=== PATIENT | female | born 1990 | race African-American/Black ===

== ENCOUNTER 2021-07-10 18:47 | Emergency (ER) | payer OTHER ==
[2021-07-11 17:21] LABS: SARS-CoV-2 PCR by NAA Not Detected (NotDetected)
== END 2021-07-10 19:23 | disposition home or self-care (01) ==
LOC: ERS 18:47
DX: R11.2 Nausea with vomiting, unspecified (principal); R19.7 Diarrhea, unspecified; Z20.822 Contact with and (suspected) exposure to COVID-19
CPT/HCPCS: 99283; U0003; U0005

== ENCOUNTER 2021-10-04 21:45 | Emergency (ER) | payer OTHER ==
[2021-10-04] MEDS ORDERED: Acetaminophen 500 MG TAB ONE ×2 (22:41)
[2021-10-05 13:15] LABS: SARS-CoV-2 PCR by NAA DETECTED (NotDetected)
== END 2021-10-04 23:13 | disposition home or self-care (01) ==
LOC: ERS 21:45
DX: U07.1 COVID-19 (principal)
CPT/HCPCS: 71045; 93005; U0003; U0005

== ENCOUNTER 2021-12-08 12:49 | Emergency (ER) | payer OTHER ==
[~2021-12-08 12:49] MED LIST: Iopamidol-370 76% 500 ML 1 ML ONE
[2021-12-08] MEDS ORDERED: Ketorolac Tromethamine 30 MG/ML VIAL ONE (13:35)
[2021-12-08] MEDS ORDERED: Morphine 4 MG/ML VIAL ONE (13:35)
[2021-12-08 16:01] LABS: #Basophils 0.1 thou/uL (0.0-0.2); #Eosinphils 0.3 thou/uL (0.0-0.7); #Lymphocytes 2.2 thou/uL (1.20-3.40); #Monocytes 0.5 thou/uL (0.11-0.59); #Neutrophils 6.2 thou/uL (1.40-6.50); %Basophils 0.8 % (0.0-1.0); %Eosinophils 2.9 % (0.0-10.0); %Lymphocytes 24.3 % (21.0-51.0); %Monocytes 5.3 % (0.0-10.0); %Neutrophils 66.7 % (42.0-75.0); Hemoglobin 12.5 g/dL (12.0-16.0); Mean Corpuscular HGB CONC 33.8 g/dL (32.0-36.0); Mean Corpuscular Hemoglobin 30.9 pg (27.0-31.0); Mean Corpuscular Volume 91.4 fL (78.0-98.0); Mean Platelet Volume 7.1 fL (7.4-10.4); Platelet Count 430 thou/uL (130-400); Red Blood Cell (RBC) Count 4.04 mill/uL (4.20-5.40); White Blood Cell (WBC) Count 9.2 thou/uL (4.8-10.8)
[2021-12-08 16:07] LABS: BHCG - Serum Negative (NEGATIVE); Pregs Control Background? CLEAR/WHITE (CLR/WHITE); Pregs Control Bar Appear? YES (CONTROL BAR)
[2021-12-08 16:13] LABS: ALT (SGPT) 16 U/L (8-55); AST (SGOT) 19 U/L (5-34); Albumin 4.1 g/dL (3.5-5.0); Alkaline Phosphatase 46 U/L (40-110); Anion Gap 13 mmol/L (10-20); BUN (Urea Nitrogen) 7 mg/dL (7.0-18.7); Bilirubin, Total 0.4 mg/dL (0.2-1.2); Calc. Creatinine Clearance 0 mL/min (70-130); Calcium 9.2 mg/dL (7.8-10.44); Carbon Dioxide 24 mmol/L (22-29); Chloride 106 mmol/L (98-107); Globulin 3.6 g/dL (2.4-3.5); Glucose 91 mg/dL (70-105); Potassium 3.6 mmol/L (3.5-5.1); Protein, Total 7.7 g/dL (6.0-8.3); Sodium 139 mmol/L (136-145)
== END 2021-12-08 17:36 | disposition home or self-care (01) ==
LOC: ERS 12:49
DX: R55 Syncope and collapse (principal); K76.0 Fatty (change of) liver, not elsewhere classified; N83.202 Unspecified ovarian cyst, left side
CPT/HCPCS: 71045; 74177; 80053; 84702; 84703; 85025; 86850; 86900; 86901; 93005; 96374; 96375; J1885; J2270; Q9967

== ENCOUNTER 2022-02-10 14:23 | Emergency (ER) | payer OTHER | END 2022-02-10 16:15 | disposition home or self-care (01) | LOC: ERS 14:23 | DX: J30.9 Allergic rhinitis, unspecified (principal) | CPT/HCPCS: 99283 ==

== ENCOUNTER 2022-04-25 18:58 | Emergency (ER) | payer BC, OTHER ==
[2022-04-25 19:33] LABS: #Basophils 0.1 thou/uL (0.0-0.2); #Eosinphils 0.3 thou/uL (0.0-0.7); #Monocytes 0.6 thou/uL (0.11-0.59); #Neutrophils 3.6 thou/uL (1.40-6.50); %Basophils 0.7 % (0.0-1.0); %Eosinophils 3.1 % (0.0-10.0); %Lymphocytes 46.7 % (21.0-51.0); %Monocytes 7.1 % (0.0-10.0); %Neutrophils 42.4 % (42.0-75.0); Hemoglobin 11.5 g/dL (12.0-16.0); Mean Corpuscular HGB CONC 32.2 g/dL (32.0-36.0); Mean Corpuscular Hemoglobin 30.6 pg (27.0-31.0); Mean Corpuscular Volume 94.9 fL (78.0-98.0); Mean Platelet Volume 7.5 fL (7.4-10.4); Platelet Count 373 thou/uL (130-400); RBC Distribution Width 12.4 % (11.5-14.5); Red Blood Cell (RBC) Count 3.75 mill/uL (4.20-5.40); White Blood Cell (WBC) Count 8.6 thou/uL (4.8-10.8)
[2022-04-25 19:40] LABS: BHCG - Serum Negative (NEGATIVE); Pregs Control Background? CLEAR/WHITE (CLR/WHITE); Pregs Control Bar Appear? YES (CONTROL BAR)
[2022-04-25 19:56] LABS: ALT (SGPT) 8 U/L (8-55); AST (SGOT) 15 U/L (5-34); Albumin 3.9 g/dL (3.5-5.0); Alkaline Phosphatase 45 U/L (40-110); Anion Gap 15 mmol/L (10-20); BUN (Urea Nitrogen) 6 mg/dL (7.0-18.7); Bilirubin, Total 0.3 mg/dL (0.2-1.2); Calc. Creatinine Clearance 0 mL/min (70-130); Carbon Dioxide 22 mmol/L (22-29); Chloride 106 mmol/L (98-107); Estimated GFR 111; Globulin 3.5 g/dL (2.4-3.5); Glucose 83 mg/dL (70-105); Lipase 32 U/L (8-78); Potassium 3.9 mmol/L (3.5-5.1); Protein, Total 7.4 g/dL (6.0-8.3); Sodium 139 mmol/L (136-145)
[2022-04-25 21:57] LABS: Bilirubin Negative (Negative); Blood, Urine Negative (Negative); Clarity Clear (Clear); Glucose, Urine (Dipstick) Normal (Negative); Ketone, Urine Negative (Negative); Leukocyte Negative Leu/uL (Negative); Nitrite Negative (Negative); Protein, Urine (Dipstick) Negative (Neg-Trace); Specific Gravity, Urine 1.013 (1.002-1.036); Urobilinogen Normal mg/dL (Less than 2); pH, Urine 6.5 (5.0-9.0)
[2022-04-25] MEDS ORDERED: Ondansetron PF 4 MG/2 ML Vial ONE (21:59)
[2022-04-25] MEDS ORDERED: Ketorolac Tromethamine 30 MG/ML VIAL ONE (21:59)
== END 2022-04-25 23:42 | disposition left against medical advice (07) ==
LOC: ERS 18:58
DX: R10.30 Lower abdominal pain, unspecified (principal)
CPT/HCPCS: 36415; 74177; 80053; 81003; 83690; 84703; 85025; 96374; 96375; J1885; J2405; Q9967

== ENCOUNTER 2022-04-26 08:42 | Emergency (ER) | payer BC ==
[2022-04-26 09:48] LABS: #Basophils 0.1 thou/uL (0.0-0.2); #Eosinphils 0.2 thou/uL (0.0-0.7); #Lymphocytes 2.5 thou/uL (1.20-3.40); #Monocytes 0.4 thou/uL (0.11-0.59); %Basophils 1.1 % (0.0-1.0); %Eosinophils 3.7 % (0.0-10.0); %Lymphocytes 40.5 % (21.0-51.0); %Monocytes 6.6 % (0.0-10.0); %Neutrophils 48.1 % (42.0-75.0); Hemoglobin 11.9 g/dL (12.0-16.0); Mean Corpuscular HGB CONC 32.8 g/dL (32.0-36.0); Mean Corpuscular Hemoglobin 30.3 pg (27.0-31.0); Mean Corpuscular Volume 92.4 fL (78.0-98.0); Mean Platelet Volume 7.4 fL (7.4-10.4); Platelet Count 374 thou/uL (130-400); RBC Distribution Width 12.3 % (11.5-14.5); Red Blood Cell (RBC) Count 3.92 mill/uL (4.20-5.40); White Blood Cell (WBC) Count 6.2 thou/uL (4.8-10.8)
[2022-04-26 09:59] LABS: BHCG - Serum Negative (NEGATIVE); Pregs Control Background? CLEAR/WHITE (CLR/WHITE); Pregs Control Bar Appear? YES (CONTROL BAR)
[2022-04-26 10:09] LABS: ALT (SGPT) 9 U/L (8-55); AST (SGOT) 17 U/L (5-34); Albumin 3.9 g/dL (3.5-5.0); Alkaline Phosphatase 46 U/L (40-110); Anion Gap 15 mmol/L (10-20); BUN (Urea Nitrogen) 5 mg/dL (7.0-18.7); Bilirubin, Total 0.4 mg/dL (0.2-1.2); Calc. Creatinine Clearance 0 mL/min (70-130); Carbon Dioxide 21 mmol/L (22-29); Chloride 106 mmol/L (98-107); Estimated GFR 103; Globulin 3.5 g/dL (2.4-3.5); Glucose 85 mg/dL (70-105); Lipase 22 U/L (8-78); Potassium 4.1 mmol/L (3.5-5.1); Protein, Total 7.4 g/dL (6.0-8.3); Sodium 138 mmol/L (136-145)
[2022-04-26] MEDS ORDERED: Ketorolac Tromethamine 30 MG/ML VIAL ONE (11:23)
== END 2022-04-26 12:04 | disposition home or self-care (01) ==
LOC: ERS 08:42
DX: N94.89 Other specified conditions associated with female genital organs and menstrual cycle (principal)
CPT/HCPCS: 36415; 80053; 83690; 84703; 85025; 94760; J1885

== ENCOUNTER 2022-05-26 08:28 | Emergency (ER) | payer OTHER ==
[2022-05-26] MEDS ORDERED: Ketorolac Tromethamine 30 MG/ML VIAL ONE (08:49)
== END 2022-05-26 09:05 | disposition home or self-care (01) ==
LOC: ERS 08:28
DX: M25.511 Pain in right shoulder (principal)
CPT/HCPCS: 96372; 99283; J1885

== ENCOUNTER 2022-07-08 08:43 | Emergency (ER) | payer OTHER ==
[2022-07-08] MEDS ORDERED: Acetaminophen 500 MG TAB ONE (09:32)
[2022-07-08] MEDS ORDERED: diphenhydrAMINE 50 MG/ML VIAL ONE (09:32)
[2022-07-08] MEDS ORDERED: Prochlorperazine 10 MG/2 ML VIAL ONE (09:34)
== END 2022-07-08 12:56 | disposition home or self-care (01) ==
LOC: ERS 08:43
DX: R51.9 Headache, unspecified (principal)
CPT/HCPCS: 96374; 96375; J0780; J1200

== ENCOUNTER 2023-04-12 10:07 | Emergency (ER) | payer OTHER | END 2023-04-12 10:50 | disposition home or self-care (01) | LOC: ERS 10:07 | DX: L60.0 Ingrowing nail (principal) | CPT/HCPCS: 99283 ==

== ENCOUNTER 2023-08-21 08:43 | Emergency (ER) | payer BC, MEDICAID ==
[2023-08-21] MEDS ORDERED: Dexamethasone 10 MG/ML VIAL ONE (09:50)
[2023-08-21 10:26] LABS: SARS-CoV-2 NAA Rapid Test Not Detected (NotDetected)
== END 2023-08-21 11:01 | disposition home or self-care (01) ==
LOC: ERS 08:43
DX: J10.1 Influenza due to other identified influenza virus with other respiratory manifestations (principal); Z20.822 Contact with and (suspected) exposure to COVID-19
CPT/HCPCS: 71045; 93005; J1100

== ENCOUNTER 2024-08-09 21:15 | Observation (INO) | payer BC, MEDICAID, SELFPAY ==
[2024-08-09] MEDS ORDERED: fentaNYL 50 mcg/mL 1 mL Vial ONE (23:17)
[2024-08-09] MEDS ORDERED: Ketorolac Tromethamine 30 MG (1 mL) VIAL ONE (23:17)
[2024-08-09 23:22] LABS: #Basophils 0.08 10x3/uL (0.0-0.2); %Basophils 0.6 % (0.0-1.0); %Eosinophils 0.2 % (0.0-10.0); %Lymphocytes 15.4 % (21.0-51.0); %Monocytes 5.6 % (0.0-10.0); %Neutrophils 77.7 % (42.0-75.0); Hematocrit 37.1 % (36.0-47.0); Hemoglobin 12.4 g/dL (12.0-16.0); Mean Corpuscular HGB CONC 33.4 g/dL (32.0-36.0); Mean Corpuscular Hemoglobin 29.5 pg (27.0-31.0); Mean Corpuscular Volume 88.1 fL (78.0-98.0); Mean Platelet Volume 10.3 fL (7.4-10.4); Platelet Count 359 10x3/uL (130-400); RBC Distribution Width 13.2 % (11.5-14.5); Red Blood Cell (RBC) Count 4.21 mill/uL (4.20-5.40)
[2024-08-09 23:47] LABS: ALT (SGPT) 34 U/L (8-55); AST (SGOT) 36 U/L (5-34); Albumin 4.3 g/dL (3.5-5.0); Alkaline Phosphatase 48 U/L (40-110); Anion Gap 17 mmol/L (10-20); BUN (Urea Nitrogen) 7 mg/dL (7.0-18.7); Bilirubin, Total 0.6 mg/dL (0.2-1.2); Calc. Creatinine Clearance 0 mL/min (70-130); Calcium 9.3 mg/dL (7.8-10.44); Carbon Dioxide 20 mmol/L (22-29); Chloride 106 mmol/L (98-107); Estimated GFR 98; Globulin 4.3 g/dL (2.4-3.5); Glucose 92 mg/dL (70-105); Potassium 3.8 mmol/L (3.5-5.1); Protein, Total 8.6 g/dL (6.0-8.3); Sodium 139 mmol/L (136-145)
[2024-08-10 00:11] LABS: BHCG - Serum Negative (NEGATIVE); Pregs Control Background? CLEAR/WHITE (CLR/WHITE); Pregs Control Bar Appear? YES (CONTROL BAR)
[2024-08-10] MEDS ORDERED: Ondansetron ODT 4 MG TAB SL PRN (00:45)
[2024-08-10] MEDS ORDERED: fentaNYL 50 mcg/mL 1 mL Vial ONE ×3 (00:58→11:49)
[2024-08-10] MEDS ORDERED: Midazolam HCl 2 mg/2 ml Vial ONE ×2 (01:58→12:16)
[2024-08-10] MEDS: fentaNYL 50 mcg/mL 1 mL Vial SLOW IVP PRN ×2 (03:29→05:05)
[2024-08-10] MEDS: Sodium Chloride 0.9% 1,000 ML IV SCH (03:29)
[2024-08-10] MEDS: HYDROcodone/Acetaminophen 5/325 mg Tablet PO PRN (03:48)
[2024-08-10 06:45] VITALS: BMI 28.2
[2024-08-10] MEDS ORDERED: CEFAZOLIN 2 GM in Sodium Chloride 0.9% 100 ML IVPB SCH (07:00)
[2024-08-10] MEDS: FLU (Fluarix Triv) TS24-25(6MOS UP)/PF 45 MCG/0.5 ML Syringe IM ONE (08:18)
[2024-08-10] MEDS ORDERED: CEFAZOLIN 2 GM VIAL ONE (09:57)
[2024-08-10] MEDS ORDERED: PROPOFOL 20 ML ONE (09:59)
[2024-08-10] MEDS ORDERED: fentaNYL PF 100 MCG/2 ML SYRINGE ONE (09:59)
[2024-08-10] MEDS ORDERED: Dexamethasone 20 MG/5 ML VIAL ONE (10:14)
[2024-08-10] MEDS ORDERED: Lidocaine 1% PF 5 ML VIAL ONE (10:14)
[2024-08-10] MEDS ORDERED: SUCCINYLCHOLINE/SOD CL,ISO/PF 200 MG/10 ML SYRINGE FS ONE (10:19)
[2024-08-10] MEDS ORDERED: Glycopyrrolate 0.2 MG/ML 5 ML SYRINGE ONE (10:20)
[2024-08-10] MEDS ORDERED: ePHEDrine Sulfate 50 MG/10 ML VIAL ONE (10:23)
[2024-08-10] MEDS ORDERED: PHENYLEPHRINE-NS 100 MCG/ML 10 ML SYRINGE ONE (10:23)
[2024-08-10] MEDS ORDERED: HYDROmorphone 2 MG/ML VIAL ONE (10:42)
[2024-08-10] MEDS ORDERED: Promethazine HCl 25 MG/ML VIAL IM PRN (11:08)
[2024-08-10] MEDS ORDERED: Ondansetron HCl/PF 4 MG/2 ML Vial IVP PRN (11:08)
[2024-08-10] MEDS ORDERED: HYDROmorphone 2 MG/ML VIAL SLOW IVP PRN (11:08)
[2024-08-10] MEDS ORDERED: Ketorolac Tromethamine 30 MG/ML VIAL IVP PRN (11:08)
[2024-08-10] MEDS ORDERED: Naloxone HCl 0.4 mg/ml Vial ONE (11:28)
[2024-08-10] MEDS ORDERED: Dexmedetomidine 200 MCG/2 ML VIAL ONE (12:15)
[2024-08-10] MEDS: Ondansetron PF 4 MG/2 ML Vial IVP PRN (19:08)
[2024-08-10] MEDS: Promethazine 25 MG TAB PO PRN (21:26)
[2024-08-11] MEDS: Cyclobenzaprine 10 MG TAB PO PRN (10:53)
[2024-08-11 11:07] VITALS: BP 103/64; TEMP 98.9
== END 2024-08-11 12:59 | disposition home or self-care (01) ==
LOC: ERS 21:15 → SURG A 08-10 00:27
PROVIDERS: ADMIT Orthopaedic Surgery; ATTEND Orthopaedic Surgery
PROC: 0QSG04Z Reposition Right Tibia with Internal Fixation Device, Open Approach (ICD-10-PCS; principal; 2024-08-11)
PROC: 3E0T3BZ Introduction of Anesthetic Agent into Peripheral Nerves and Plexi, Percutaneous Approach (ICD-10-PCS; 2024-08-11)
PROC: 3E0T3BZ Introduction of Anesthetic Agent into Peripheral Nerves and Plexi, Percutaneous Approach (ICD-10-PCS; 2024-08-11)
DX: S82.851A Displaced trimalleolar fracture of right lower leg, initial encounter for closed fracture (principal); Z98.51 Tubal ligation status; Z90.49 Acquired absence of other specified parts of digestive tract; Z88.6 Allergy status to analgesic agent; X50.1XXA Overexertion from prolonged static or awkward postures, initial encounter; Y93.51 Activity, roller skating (inline) and skateboarding
CPT/HCPCS: 27818; 36415; 80053; 84703; 85025; 93005; 96374; 96375; 96376; 99152; C1713; G0378; J1100; J1885; J2250; J2310; J2405; J2704; J3010; J7030; Q0169